=== PATIENT | male | born 1965 | race Hispanic/Latino ===

== ENCOUNTER 2020-05-20 16:32 | Emergency (ER) | payer SELFPAY ==
[~2020-05-20] VITALS: Ht 162.6 cm; Wt 77.1 kg
[~2020-05-20 16:32] MED LIST: INDOMETHACIN50 MG PO
[2020-05-20] MEDS ORDERED: AMLODIPINE BESYLATE 5 MG TAB PO ONE (17:00)
--- OUTSIDE RECORDS SUMMARY | 2020-05-20 17:09 | XMS REPORT | Clinical Summary ---
Author Author [facility] Organization [facility] Address Unknown Phone Unavailable Care Team Providers Care Critical Systems Technician Name Role Phone PCP Unavailable Allergies No Known Allergies Medications End Date Status Medication Sig Dispensed Refills Start Date Active colchicine (COLCRYS) 0.6 Use up to 30 tablet 1 1 mg tabletIndications: three times a 7 Idiopathic chronic gout day for acute of left knee without attack of tophus gout. Active polyethylene glycol Add lukewarm 4000 mL 0 09/07 (GOLYTELY) [id number] drinking 8 -5.86 gram oral water to the solutionIndications: OB + fill amarilys (4 stool liters) and shake. Drink as directed by your doctor.. Active propranolol (INDERAL) 40 Take 1/2 90 tablet 1 0 mg tabletIndications: tablet by 8 Essential hypertension mouth 2 times daily. Active losartan (COZAAR) 50 mg Take 1 tablet 90 tablet 1 tabletIndications: by mouth 8 Essential hypertension daily. Active allopurinol (ZYLOPRIM) Take 1 tablet 180 tablet 2 0 100 mg tabletIndications: by mouth 2 8 Idiopathic chronic gout times daily. 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 Active Problems Problem Noted Date Hx of colonoscopy with polypectomy- needs rpt in 1 yr 10/28/2017 Internal hemorrhoids 10/28/2017 Diverticulosis of intestine without bleeding 018 Tubular adenoma 10/28/2017 Chronic pain of left knee 10/11/2017 Essential hypertension 09/22/2017 Chewing tobacco use 09/07/2017 History of substance abuse 09/07/2017 Alcohol abuse 09/07/2017 Gout 09/07/2017 Chronic pain of left lower extremity 06/23/2017 Immunizations Name Administration Dates Next Due Influenza Vaccine, 09/07/2017 (Deferred: Unava ilable-Patient to Seasonal, Injectable return for vaccine later) Tdap (Tetanus Toxoid, 09/07/2017 Reduced Diphtheria Toxoid And Acellular Pertussis, Absorbed) Family History Medical History Relation Name Comments Other Father Heart Mother Relation Name Status Comments Father suicide Mother Social History Date Tobacco Use Types Packs/Day Years Used Never Smoker Smokeless Tobacco: Chew Current User Tobacco Cessation: Counseling Given: Yes Drinks/Week oz/Week Comments Alcohol Use No Food Insecurity Answer Date Recorded Within the past 12 months, you worried that your Never albina e 06/28/2017 food would run out before you got money to buy more. Within the past 12 months, the food you bought Never true 06/28/2017 just didn't last and you didn't have mo heriberto to get more. Sex Assigned at Date Recorded Not on file Industry Job Start Date Occupation Not on file Not on file Not on file Travel End Travel History Travel Start No recent travel history available. Last Filed Vital Signs Not on file Plan of Treatment Health Maintenance Due Date Last Done Comments Colorectal Cancer Scrn 10/27/2018 10/27/2017, Annual (FIT/FOBT) Age 50 07/01/2017 to 75 IMM Influenza Seasonal 04/03/2020 Oct to September (>/= 19 yrs) Results Not on fileafter 05/20/2019
--- OUTSIDE RECORDS SUMMARY | 2020-05-20 17:09 | XMS REPORT | Continuity of Care Document ---
Author Author Rodolfo Pruett HAFSA [place] Address Unknown Phone Unavailable Care Team Providers Care [employer] Name Role Phone [employer] Unavailable Un available Problems Problem Status Onset Date Classification Date Reported Comments Source Chest pain, unspecified 06/04/2019 06/07/2019 [facility] Tachycardia, unspecified 06/04/2019 06/07/2019 [facility] Nausea with vomiting, unspecified 06/04/2019 06/07/2019 [facility] CP/SOB Active 06/04/2019 [facility] Contusion of scalp, initial encounter 09/19/2017 12/19/2017 [facility] Other injury of unspecified body region, initial encounter 09/11/2017 12/19/2017 [facility] Pain in right shoulder 09/11/2017 12/19/2017 [facility] Unspecified fall, initial encounter 09/11/2017 12/19/2017 [facility] OTHER Active 09/11/2017 [facility] Acute chest pain (finding) Res olved 03/26/2017 Problem 06/07/2019 [facility] ACUTE CHEST PAIN Active 03/26/2017 [facility] CHEST PAIN Active 03/26/2017 [facility] Gout (disorder) Resolved Problem 06/07/2019 [facility] Fall from, out of or through roof, initial encounter 12/19/2017 [facility] Other chest pain 12/19/2017 [facility] Essential (primary) hypertension 12/19/2017 [facility] Personal history of nicotine dependence 12/19/2017 [facility] CHEST PAIN, UNSPECIFIED Active [facility] Medications Medication Details Route Status Patient Instructions Ordering Provider Order Date Source NS (Bolus) IV 1,000 mL, 1,000 ml/hr, Infuse Over: 1 hr, Route: IV, 1,000, Drug form: INJ, ONCE, Priority: STAT, Dosing Weight 75 kg, Start date: 06/04/19 20:58:00 [employer]ODUCTION WORKER, 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, 0 Inactive 06/05/2019 [facility] Saline Flush 0.9% Notes: Same as: BD Posiflush Sterile No Longer Active 06/05/2019 [facility] tramadol hydrochloride 50 MG Oral Tablet 50 mg = 1 tab, PO, Q6H, PRN Pain, # 30 tab, 0 Refill(s) Active 09/12/2017 [facility] tramadol hydrochloride 50 MG Oral Tablet 50 mg, Route: PO, Drug form: TAB, ONCE, Dosing Weight 70.455, kg, Priority: STAT, Start date: 09/11/17 22:47:00 CDT, Stop date: 09/11/17 22:47:00 CDT Inactive 09/12/2017 [facility] Ondansetron Notes: (Same as: Deborah lundberg) MEDICATION WASTE Product Size: 4 mg Product Wasted: ___ mg Inactive 09/12/2017 [facility] Morphine Notes: (Same as:MORPh ine Sulfate) Inactive 09/12/2017 [facility] Saline Flush 0.9% Notes: (Same as: BD Posiflush) Inactive 03/27/2017 [facility] aspirin 81 mg tablet, enteric coated Notes: Do not crush or chew. (Same As: Ecotrin) Inactive 03/27/2017 [facility] carvedilol Notes: Give with fo od. (Same As: Coreg) Inactive 03/27/2017 [facility] Saline Flush 0.9% Notes: (Same as: BD Posiflush) Inactive 03/27/2017 [facility] Morphine 2 mg, 1 mL, Route: IV P, Drug form: SOLN, Q15Min, Dosing Weight 81.818, kg, PRN Chest Pain, Start date: 03/27/17 1:07:00 CDT, Duration: 2 doses or times, Stop date: Limited # of times Inactive 03/27/2017 [facility] Ondansetron Notes: (Same as: Deborah lundberg) Inactive 03/27/2017 [facility] Nitroglycerin Notes: (Same as: Nitroquick, Nitrostat) "Do Not Crush" Sublingual tablet Inactive 03/27/2017 [facility] Aspirin Notes: Take with food. Inactive 03/27/2017 [facility] Saline Flush 0.9% Notes: prese rvative free. No Longer Active 03/27/2017 [facility] Allergies, Adverse Reactions, Alerts Substance Category Reaction Severity Reaction type Status Date Reported Comments Source No Known Medication Allergies Assertion Drug aller gy [facility] Immunizations No Data Provided for This Section Results Order Name Results Value Reference Range Date Interpretation Comments Source CARDIAC ENZYMES Troponin-I <0.02 0.00 - 0.40 06/05/2019 [facility] CARDIAC ENZYMES Total CK 90 12 - 191 06/05/2019 [facility] CARDIAC ENZYMES Troponin-I <0.02 0.00 - 0.40 06/05/2019 [facility] CHEM [facility] Glucose Lvl 86 70 - 99 06/05/2019 [facility] CHEM PANEL BUN 7 7 - 22 06/05/2019 [facility] CHEM PANEL Creatinine Lvl 1.10 0.50 - 1.40 06/05/2019 [facility] CHEM PANEL Sodium Lvl 143 135 - 145 06/05/2019 [facility] CHEM PANEL Potassium Lvl 3.5 3.5 - 5.1 06/05/2019 [facility] CHEM PANEL Chloride Lvl 109 95 - 109 06/05/2019 [facility] CHEM PANEL CO2 26 24 - 32 06/05/2019 [facility] CHEM PANEL Calcium Lvl 8.5 8.5 - 10.5 06/05/2019 [facility] CHEM PANEL Total Protein 7.4 6.4 - 8.4 06/05/2019 [facility] CHEM PANEL Albumin Lvl 3.5 3.5 - 5.0 06/05/2019 [facility] CHEM PANEL ALT 47 0 - 65 06/05/2019 [facility] CHEM PANEL AST 40 0 - 37 06/05/2019 [facility] CHEM PANEL Alk Phos 92 39 - 136 06/05/2019 [facility] CHEM PANEL Bili Total 0.5 0.2 - 1.3 06/05/2019 [facility] CHEM PANEL eGFR 76 06/05/2019 Result Comment: The eGFR is calculated using the CKD-EPI formula. In most young, healthy individuals the eGFR will be >90 mL/min/1.73m2. The eGFR declines with age. An eGFR of 60-89 may be normal in some populations, particularly the elderly, for whom the CKD-EPI formula has not been extensively validated. Use of the eGFR is not recommended in the following populations:

Individuals with unstable creatinine concentrations, including patients and those with serious co-morbid conditions.

Patients with extremes in muscle mass or diet.

The data above are obtained from the National Kidney Disease Education Program (NKDEP) which additionally recommends that when the eGFR is used in patients with extremes of body mass index for purposes of drug dosing, the eGFR should be multiplied by the estimated BMI. [facility] CHEM PANEL AGAP 11.5 10.0 - 20.0 06/05/2019 [facility] CHEM PANEL B/C Ratio 6 6 - 25 06/05/2019 [facility] CHEM PANEL Globulin 3.9 2.7 - 4.2 06/05/2019 [facility] CHEM PANEL A/G Ratio 0.9 0.7 - 1.6 06/05/2019 [facility] CHEM PANEL Lipase Lvl 160 73 - 393 06/05/2019 [facility] U Amph Scr Nega tive *NA* (06/04/19 9:36 PM) Negative 06/05/2019 [facility] U Rizwana Scr Nega tive *NA* (06/04/19 9:36 PM) Negative 06/05/2019 [facility] U Benzodiaz Scr Nega tive *NA* (06/04/19 9:36 PM) Negative 06/05/2019 [facility] U Cocaine Scr Nega tive *NA* (06/04/19 9:36 PM) Negative 06/05/2019 [facility] U Cannab Scr Nega tive *NA* (06/04/19 9:36 PM) Negative 06/05/2019 [facility] U Opiate Scr Nega tive *NA* (06/04/19 9:36 PM) Negative 06/05/2019 [facility] DRUG SCREEN U Phencyclidine Scr Nega tive *NA* (06/04/19 9:36 PM) Negative 06/05/2019 [facility] DRUG SCREEN UDS Note See Note (06/04/19 9:36 PM) 06/05/2019 [facility] HEMATOLOGY WBC 5.3 3.7 - 10.4 06/05/2019 [facility] HEMATOLOGY RBC 4.46 4.70 - 6.10 06/05/2019 [facility] HEMATOLOGY Hgb 14.0 14.0 - 18.0 06/05/2019 [facility] HEMATOLOGY Hct 41.6 42.0 - 54.0 06/05/2019 [facility] HEMATOLOGY MCV 93.2 80.0 - 94.0 06/05/2019 [facility] HEMATOLOGY MCH 31.4 27.0 - 31.0 06/05/2019 [facility] HEMATOLOGY MCHC 33.7 32.0 - 36.0 06/05/2019 [facility] HEMATOLOGY RDW 14.4 11.5 - 14.5 06/05/2019 [facility] Platelet 140 133 - 450 06/05/2019 [facility] MPV 7.1 7.4 - 10.4 06/05/2019 [facility] D-Dimer 0.31 06/05/2019 [facility] Segs 58.0 45.0 - 75.0 06/05/2019 [facility] Lymphocytes 31.9 20.0 - 40.0 06/05/2019 [facility] Monocytes 7.6 2.0 - 12.0 06/05/2019 [facility] Eosinophils 1.1 0.0 - 4.0 06/05/2019 [facility] Basophils 1.4 0.0 - 1.0 06/05/2019 [facility] Neutrophils # 3.1 1.5 - 8.1 06/05/2019 [facility] Lymphocytes # 1.7 1.0 - 5.5 06/05/2019 [facility] Monocytes # 0.4 0.0 - 0.8 06/05/2019 [facility] Eosinophils # 0.1 0.0 - 0.5 06/05/2019 [facility] Basophils # 0.1 0.0 - 0.2 06/05/2019 [facility] CHEM PANEL A/G Ratio 0.9 0.7 - 1.6 09/12/2017 [facility] CHEM PANEL B/C Ratio 13 6 - 25 09/12/2017 [facility] CHEM PANEL AGAP 13.2 10.0 - 20.0 09/12/2017 [facility] CHEM PANEL Globulin 4.1 2.7 - 4.2 09/12/2017 [facility] CHEM PANEL eGFR 72 09/12/2017 Result Comment: The eGFR is calculated using the CKD-EPI formula. In most young, healthy individuals the eGFR will be >90 mL/min/1.73m2. The eGFR declines with age. An eGFR of 60-89 may be normal in some populations, particularly the elderly, for whom the CKD-EPI formula has not been extensively validated. Use of the eGFR is not recommended in the following populations:

Individuals with unstable creatinine concentrations, including patients and those with serious co-morbid conditions.

Patients with extremes in muscle mass or diet.

The data above are obtained from the National Kidney Disease Education Program (NKDEP) which additionally recommends that when the eGFR is used in patients with extremes of body mass index for purposes of drug dosing, the eGFR should be multiplied by the estimated BMI. [facility] CHEM PANEL Glucose Lvl 83 70 - 99 09/12/2017 [facility] CHEM PANEL AST 23 0 - 37 09/12/2017 [facility] CHEM PANEL Alk Phos 114 39 - 136 09/12/2017 [facility] CHEM PANEL Bili Total 0.3 0.2 - 1.3 09/12/2017 [facility] CHEM PANEL Albumin Lvl 3.8 3.5 - 5.0 09/12/2017 [facility] CHEM PANEL ALT 33 0 - 65 09/12/2017 [facility] CHEM PANEL CO2 25 24 - 32 09/12/2017 [facility] CHEM PANEL Total Protein 7.9 6.4 - 8.4 09/12/2017 [facility] CHEM PANEL Calcium Lvl 8.7 8.5 - 10.5 09/12/2017 [facility] CHEM PANEL Sodium Lvl 135 135 - 145 09/12/2017 [facility] CHEM PANEL Potassium Lvl 4.2 3.5 - 5.1 09/12/2017 [facility] CHEM PANEL Chloride Lvl 101 95 - 109 09/12/2017 [facility] CHEM PANEL BUN 15 7 - 22 09/12/2017 [facility] CHEM PANEL Creatinine Lvl 1.16 0.50 - 1.40 09/12/2017 [facility] HEMATOLOGY INR 0.94 0.85 - 1.17 09/12/2017 [facility] HEMATOLOGY PTT 26.6 22.9 - 35.8 09/12/2017 [facility] HEMATOLOGY PT 12.6 12.0 - 14.7 09/12/2017 [facility] HEMATOLOGY MPV 8.4 7.4 - 10.4 09/12/2017 [facility] HEMATOLOGY Platelet 212 133 - 450 09/12/2017 [facility] HEMATOLOGY Hct 42.4 42.0 - 54.0 09/12/2017 [facility] RBC 4.95 4.70 - 6.10 09/12/2017 [facility] HEMATOLOGY MCV 85.6 80.0 - 94.0 09/12/2017 [facility] Hgb 14.1 14.0 - 18.0 09/12/2017 [facility] MCHC 33.3 32.0 - 36.0 09/12/2017 [facility] MCH 28.5 27.0 - 31.0 09/12/2017 [facility] RDW 15.6 11.5 - 14.5 09/12/2017 [facility] HEMATOLOGY WBC 8.3 3.7 - 10.4 09/12/2017 [facility] HEMATOLOGY Basophils # 0.2 0.0 - 0.2 09/12/2017 [facility] HEMATOLOGY Eosinophils # 0.3 0.0 - 0.5 09/12/2017 [facility] HEMATOLOGY Monocytes # 0.7 0.0 - 0.8 09/12/2017 [facility] HEMATOLOGY Basophils 2.3 0.0 - 1.0 09/12/2017 [facility] HEMATOLOGY Eosinophils 3.4 0.0 - 4.0 09/12/2017 [facility] Segs-Bands # 5.2 1.5 - 8.1 09/12/2017 [facility] Lymphocytes # 1.8 1.0 - 5.5 09/12/2017 [facility] Segs 63.2 45.0 - 75.0 09/12/2017 [facility] Lymphocytes 22.3 20.0 - 40.0 09/12/2017 [facility] Monocytes 8.8 2.0 - 12.0 09/12/2017 [facility] CHEM PANEL eGFR 57 09/12/2017 Result Comment: The eGFR is calculated using the CKD-EPI formula. In most young, healthy individuals the eGFR will be >90 mL/min/1.73m2. The eGFR declines with age. An eGFR of 60-89 may be normal in some populations, particularly the elderly, for whom the CKD-EPI formula has not been extensively validated. Use of the eGFR is not recommended in the following populations:

Individuals with unstable creatinine concentrations, including patients and those with serious co-morbid conditions.

Patients with extremes in muscle mass or diet.

The data above are obtained from the National Kidney Disease Education Program (NKDEP) which additionally recommends that when the eGFR is used in patients with extremes of body mass index for purposes of drug dosing, the eGFR should be multiplied by the estimated BMI. [facility] CHEM PANEL POC Creatinine 1.4 0.5 - 1.4 09/12/2017 [facility] CARDIAC ENZYMES CK MB 1.0 0.5 - 3.6 03/27/2017 [facility] CARDIAC ENZYMES CK MB Index 1.0 0.0 - 2.5 03/27/2017 [facility] CARDIAC ENZYMES Total CK 104 12 - 191 03/27/2017 [facility] CARDIAC ENZYMES Troponin-I <0.02 0.00 - 0.40 03/27/2017 [facility] CARDIAC ENZYMES CK MB 1.0 0.5 - 3.6 03/27/2017 [facility] CARDIAC ENZYMES CK MB Index 0.9 0.0 - 2.5 03/27/2017 [facility] CARDIAC ENZYMES Troponin-I <0.02 0.00 - 0.40 03/27/2017 [facility] CARDIAC ENZYMES Total CK 115 12 - 191 03/27/2017 [facility] CHEM PANEL Ammonia 47.0 <=45.0 uMol/L 03/27/2017 [facility] CARDIAC ENZYMES BNP 26 <=100 pg/mL 03/27/2017 [facility] CARDIAC ENZYMES Troponin-I <0.02 0.00 - 0.40 03/27/2017 [facility] CARDIAC ENZYMES CK MB 1.3 0.5 - 3.6 03/27/2017 [facility] CARDIAC ENZYMES Total CK 153 12 - 191 03/27/2017 [facility] CARDIAC ENZYMES CK MB Index 0.8 0.0 - 2.5 03/27/2017 [facility] CHEM PANEL eGFR 94 03/27/2017 Result Comment: The eGFR is calculated using the CKD-EPI formula. In most young, healthy individuals the eGFR will be >90 mL/min/1.73m2. The eGFR declines with age. An eGFR of 60-89 may be normal in some populations, particularly the elderly, for whom the CKD-EPI formula has not been extensively validated. Use of the eGFR is not recommended in the following populations:

Individuals with unstable creatinine concentrations, including patients and those with serious co-morbid conditions.

Patients with extremes in muscle mass or diet.

The data above are obtained from the National Kidney Disease Education Program (NKDEP) which additionally recommends that when the eGFR is used in patients with extremes of body mass index for purposes of drug dosing, the eGFR should be multiplied by the estimated BMI. [facility] CHEM PANEL Potassium Lvl 3.8 3.5 - 5.1 03/27/2017 [facility] CHEM PANEL Chloride Lvl 108 95 - 109 03/27/2017 [facility] CHEM PANEL Sodium Lvl 141 135 - 145 03/27/2017 [facility] CHEM PANEL BUN 8 7 - 22 03/27/2017 [facility] CHEM PANEL Creatinine Lvl 0.93 0.50 - 1.40 03/27/2017 [facility] CHEM PANEL Glucose Lvl 98 70 - 99 03/27/2017 [facility] CHEM PANEL ALT 27 0 - 65 03/27/2017 [facility] CHEM PANEL Albumin Lvl 3.4 3.5 - 5.0 03/27/2017 [facility] CHEM PANEL A/G Ratio 0.8 0.7 - 1.6 03/27/2017 [facility] CHEM PANEL Globulin 4.1 2.7 - 4.2 03/27/2017 [facility] CHEM PANEL AGAP 9.8 10.0 - 20.0 03/27/2017 [facility] CHEM PANEL B/C Ratio 9 6 - 25 03/27/2017 [facility] CHEM PANEL Bili Total 0.4 0.2 - 1.3 03/27/2017 [facility] CHEM PANEL AST 29 0 - 37 03/27/2017 [facility] CHEM PANEL Alk Phos 93 39 - 136 03/27/2017 [facility] CHEM PANEL Total Protein 7.5 6.4 - 8.4 03/27/2017 [facility] CHEM PANEL Calcium Lvl 8.0 8.5 - 10.5 03/27/2017 [facility] CHEM PANEL CO2 27 24 - 32 03/27/2017 [facility] HEMATOLOGY MCV 85.1 80.0 - 94.0 03/27/2017 [facility] HEMATOLOGY Hgb 13.4 14.0 - 18.0 03/27/2017 [facility] HEMATOLOGY Hct 39.4 42.0 - 54.0 03/27/2017 [facility] HEMATOLOGY WBC 5.6 3.7 - 10.4 03/27/2017 [facility] HEMATOLOGY RBC 4.62 4.70 - 6.10 03/27/2017 [facility] HEMATOLOGY Platelet 179 133 - 450 03/27/2017 [facility] HEMATOLOGY MPV 7.7 7.4 - 10.4 03/27/2017 [facility] HEMATOLOGY MCH 29.0 27.0 - 31.0 03/27/2017 [facility] HEMATOLOGY MCHC 34.0 32.0 - 36.0 03/27/2017 [facility] HEMATOLOGY RDW 16.7 11.5 - 14.5 03/27/2017 [facility] HEMATOLOGY Basophils # 0.1 0.0 - 0.2 03/27/2017 [facility] HEMATOLOGY Monocytes # 0.5 0.0 - 0.8 03/27/2017 [facility] HEMATOLOGY Eosinophils # 0.1 0.0 - 0.5 03/27/2017 [facility] HEMATOLOGY Eosinophils 2.6 0.0 - 4.0 03/27/2017 [facility] HEMATOLOGY Basophils 1.7 0.0 - 1.0 03/27/2017 [facility] HEMATOLOGY Segs-Bands # 3.1 1.5 - 8.1 03/27/2017 [facility] HEMATOLOGY Lymphocytes # 1.7 1.0 - 5.5 03/27/2017 [facility] Segs 55.9 45.0 - 75.0 03/27/2017 [facility] Lymphocytes 31.3 20.0 - 40.0 03/27/2017 [facility] HEMATOLOGY Monocytes 8.5 2.0 - 12.0 03/27/2017 [facility] Pathology Reports No Data Provided for This Section Diagnostic Reports Report Value Date Source Chest 2 views DX PROCEDURE INF ORMATION: Exam: XR Chest, 2 Views Exam date and time: 06/04/2019 10:05 PM Age: 54 years old Clinical history: Chest pain; Additional info: /chest pain TECHNIQUE: Imaging protocol: XR of the chest Views: 2 views. PA and Lateral COMPARISON: CHEST 1VIEW DX 09/11/2017 8:48 PM FINDINGS: Lungs: There are normal lung volumes without consolidation or interstitial oppacities. Pleural space: Unremarkable. No pleural effusion. No pneumothorax. Heart/Mediastinum: The heart size is normal. The pulmonary vasculature is normal. The mediastinal contour is normal. The trachea is midline. Bones/joints: No acute abnormality seen. IMPRESSION: No acute cardiopulmonary findings Shun Pat MD On 06/04/2019 22:08:56; [id number] 06/04/2019 [facility] Shoulder series DX EXAM: XR RI GHT SHOULDER, 3 VIEWS DATE: 09/11/2017 10:29 PM CDT INDICATION: Right shoulder pain. COMPARISON: None Available. TECHNIQUE: AP views in internal and external rotation as well as a scapular Y view of the right shoulder were obtained. FINDINGS: No fracture or malalignment is present. The soft tissues are within normal limits. There are no radiopaque foreign bodies. IMPRESSION: No acute fracture or dislocation. SL: [id number] 09/11/2017 [facility] Spine cervical wo contrast CT Clinical Indication: Pain Post Trauma - neck pain s/p fall from roof; Comparison: None Technique: Multi-detector CT imaging of the cervical spine is performed. Coronal and sagittal reconstructions were obtained. CT Radiation Dose DLP 875.48 mGy-cm FINDINGS: ALIGNMENT AND GENERAL ASSESSMENT: There is normal alignment of the cervical spine. There are no fractures or subluxations. The craniocervical junction is normal. The atlanto-dental alignment appears unremarkable. The posterior elements and spinous processes are unremarkable. The facet joint, spinolaminar and spinous process alignment are normal. DISK SPACES AND SOFT TISSUES: The prevertebral soft tissues are normal. C2-C3 to C7-T1 disc space levels show no definite disc protrusions on CT. There is no central or foraminal stenosis. MRI is the gold standard to assess for disk disease. VISUALIZED LUNG APICES: Unremarkable. CT myelogram or MRI of the cervical spine may be performed, if there is further concern. IMPRESSION: No fractures or subluxations of the cervical spine. SL: ANA 09/11/2017 [facility] Brain wo contrast CT Clinical Indication: Pain Post Trauma - BAILEY s/p fall from roof. Comparison: None. TECHNIQUE: CT images were obtained from the foramen magnum to the vertex without the use of intravenous contrast on a multidetector CT. CT imaging was performed with exposure control parameters to reduce radiation dose. Coronal and sagittal reconstructions were obtained. CT radiation dose DLP: 1776.74 mGy-cm FINDINGS: BRAIN PARENCHYMA: The brain parenchyma is normal with normal camilo and white interfaces. The periventricular white matter appears unremarkable. No focal mass lesions on this noncontrast head CT. No mass effect, midline shift or edema. There are no intra-axial or extra-axial fluid collections, intraventricular or intraparenchymal hemorrhage. No low attenuation demarcating areas on this non- contrast CT to suggest subacute stroke. VENTRICLES: The lateral ventricles, third and fourth ventricles appear unremarkable. The basilar cisterns are normal. ORBITS, MASTOIDS AND PARANASAL SINUSES: The visualized orbits are unremarkable. The visualized paranasal sinuses are unremarkable. The mastoid air cells are clear. SKULL: There are no osseous abnormalities. If there is further concern for intracranial pathology or acute stroke, MRI of the brain may be performed for complete assessment. IMPRESSION: No acute intracranial hemorrhage or mass effect. No calvarial fracture. SL: [id number] 09/11/2017 [facility] Chest/Abdomen/Pelvis w IV contrast CT Patient Name: REFUGIO LEE : 1965; Age: 52 years y/o Male MR: [id number] Study: Chest/Abdomen/Pelvis w IV contrast CT 09/11/2017 8:44 PM CDT Ordering Physician: Yamila Uriostegui MD Clinical Indication: Pain Post Trauma - fall from roof c/o chest pain Comparison: None TECHNIQUE: Sequential trans-axial images of the chest abdomen and pelvis were obtained with a multi-detector helical CT after administration of iodinated contrast. Coronal, sagittal and 3d post processing MIP reconstructions were obtained.. 100 mL of omnipaque contrast material was used for the exam. CT Radiation Dose DLP 2037.89 mGy-cm FINDINGS: CT CHEST: LUNG PARENCHYMA AND PLEURA: The lungs are clear. There are no pleural effusions. There is no pneumothorax. AIRWAY: The central airway demonstrates no acute pathology. MEDIASTINUM: No significant mediastinal lymphadenopathy. HEART: There is no evidence of RV strain. The cardiac chambers are otherwise unremarkable. There is no pericardial effusion. VASCULAR STRUCTURES: The thoracic aorta is is free of aneurysm . The superior vena cava is unremarkable. OSSEOUS STRUCTURES: There are no definite significant osseous abnormalities seen. CT ABDOMEN WITH CONTRAST: ABDOMINAL SOLID ORGANS: The liver, spleen, pancreas, adrenals and kidneys demonstrate no acute pathology. Gallstones noted, no refugio acute cholecystitis. STOMACH AND BOWEL: The stomach is demonstrates no acute pathology. There is no evidence of bowel obstruction or free air. Small hiatal hernia noted. PERITONEUM AND RETROPERITONEUM: There is no lymphadenopathy appreciated. VASCULAR STRUCTURES: The abdominal aorta demonstrates no acute pathology. Atherosclerotic calcifications noted. CT PELVIS WITH CONTRAST: BOWEL:There is no evidence of bowel obstruction appreciated. Extensive diverticulosis noted, no refugio diverticulitis. PERITONEUM AND EXTRAPERITONEAL REGIONS: There is no pelvic sidewall lymphadenopathy appreciated.. The inguinal regions demonstrate no acute pathology. BLADDER: The bladder demonstrate no acute pathology. OSSEOUS STRUCTURES: The bilateral femoral heads are heterogeneous, ?early AVN. MRI follow up recommended. 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 MRI follow up recommended. No acute traumatic pathology appreciated. SL: BRITNEY 09/11/2017 [facility] Pelvis AP DX EXAM: XR PELVIS, 1 VIEW DATE: 09/11/2017 8:47 PM CDT INDICATION: Pelvic pain. Trauma COMPARISON: None. TECHNIQUE: AP radiograph of the pelvis. FINDINGS: No fracture or dislocation of the pelvis is identified. The pelvic and obturator rings are intact. The pubic rami are intact. The symphysis pubis and sacroiliac joints are unremarkable. The visualized sacral foramina are unremarkable. The hip joint spaces, proximal femoral regions and acetabular regions are unremarkable. IMPRESSION: No fracture or malalignment of the pelvis. SL: [id number] 09/11/2017 [facility] Chest 1view DX Clinical Indica tion: Pain Post Trauma - c/o chest pain s/p fall from roof; Comparison: March 26, 2017 FINDINGS: AP chest radiographs shows normal lung volumes without interstitial or airspace opacities, pleural effusions or pneumothorax. The heart size and pulmonary vasculature are normal. The trachea is midline. There are no clinically significant osseous abnormalities noted. IMPRESSION: No chest radiographic evidence of acute cardiopulmonary disease. SL: [id number] 09/11/2017 [facility] Chest 1view DX EXAM: Chest 1vi ew DX DATE: 03/26/2017 7:03 PM CDT INDICATION: Chest pain - chest pain COMPARISON: None. IMPRESSION: Grossly normal cardiac silhouette and mediastinum. No focal consolidation, significant pleural effusion or pneumothorax. SL: [id number] 03/26/2017 [facility] Consultation Notes No Data Provided for This Section Discharge Summaries No Data Provided for This Section History and Physicals No Data Provided for This Section Vital Signs Vital Sign Value Date Comments Source Systolic (mm Hg) 127 06/05/2019 [facility] Diastolic (mm Hg) 66 06/05/2019 [facility] Heart Rate 75 06/05/2019 [facility] Respitory Rate 18 06/05/2019 [facility] Temperature Oral (F) 97.9 F 06/05/2019 [facility] BMI Calculated 28.38 06/05/2019 [facility] Systolic (mm Hg) 153 06/05/2019 [facility] Diastolic (mm Hg) 89 06/05/2019 [facility] Heart Rate 104 06/05/2019 [facility] Respitory Rate 18 06/05/2019 [facility] Temperature Oral (F) 98.1 F 06/05/2019 [facility] Height 162.56 cm 06/05/2019 [facility] BMI Calculated 28.38 06/05/2019 [facility] Weight 75 1 08/06/2018 [facility] Respitory Rate 30 09/12/2017 [facility] Systolic (mm Hg) 138 09/12/2017 [facility] Diastolic (mm Hg) 79 09/12/2017 [facility] Systolic (mm Hg) 134 09/12/2017 [facility] Diastolic (mm Hg) 97 09/12/2017 [facility] Respitory Rate 12 09/12/2017 [facility] Weight 70.455 09/12/2017 [facility] BMI Calculated 26.66 09/12/2017 [facility] Height 162.56 cm 09/12/2017 [facility] Temperature Oral (F) 98 F 09/12/2017 [facility] Heart Rate 78 09/12/2017 [facility] Respitory Rate 20 09/12/2017 [facility] Systolic (mm Hg) 148 09/12/2017 [facility] Diastolic (mm Hg) 96 09/12/2017 [facility] Systolic (mm Hg) 168 03/27/2017 [facility] Diastolic (mm Hg) 92 03/27/2017 [facility] Heart Rate 68 03/27/2017 [facility] Respitory Rate 20 03/27/2017 [facility] Temperature Oral (F) 98.2 F 03/27/2017 [facility] Heart Rate 76 03/27/2017 [facility] Temperature Oral (F) 97.8 F 03/27/2017 [facility] Respitory Rate 18 03/27/2017 [facility] Systolic (mm Hg) 105 03/27/2017 [facility] Diastolic (mm Hg) 54 03/27/2017 [facility] Respitory Rate 18 03/27/2017 [facility] BMI Calculated 46.9 03/27/2017 [facility] Weight 81.818 03/27/2017 [facility] Height 132.08 cm 03/27/2017 [facility] Temperature Oral (F) 98.2 F 03/27/2017 [facility] Systolic (mm Hg) 125 03/27/2017 [facility] Diastolic (mm Hg) 70 03/27/2017 [facility] Heart Rate 89 03/27/2017 [facility] Encounters Location Location Details Encounter Type Encounter Number Reason For Visit Attending Provider ADM Date DC Date Status Source [facility] Observation [id number] Tito Kwan 03/26/2017 03/27/2017 [facility] [id number] Yamila Moody 09/12/2017 09/12/2017 [facility] [id number] Fan Jimenez 06/05/2019 06/05/2019 [facility] Procedures No Data Provided for This Section Assessment and Plan Assessment and Plan Date Source Extracted from:Title: Clinical Document Author: Tito Kwan MD Date: 03/27/17 Cardiology Note Tito Kwan MD, PA THIS IS A COMBINED H&P AND DISCHARGE SUMMARY SUBJECTIVE: CHIEF COMPLAINT: Chest pain. HISTORY OF PRESENT ILLNESS: Patient is a 52-year-old male with history of gout, presents with 1-month history of chest pain described as tightness and stabbing. He did have some shortness of breath. Denies any nausea, vomiting or dizziness. No lower extremity edema. Patient denies any history of previous heart catheterization or 2D echo. REVIEW OF SYSTEMS: CONSTITUTIONAL: As per HPI. CARDIAC: As per HPI. PHYSICAL EXAMINATION: GENERAL: He was seen at the bedside. He is in no acute distress. HEENT: His pupils are equal and reactive to light and accommodation. Extraocular movements are intact. NECK: No JVD. No lymphadenopathy. RESPIRATORY: Lungs are clear to auscultation bilaterally. CARDIOVASCULAR: Heart is regular rate and rhythm. No murmurs, rubs or gallops. GENITOURINARY: Deferred. RECTAL: Deferred. SKIN: Warm and dry. MEDICATIONS: None. ALLERGIES: No known drug allergies. PAST MEDICAL HISTORY: Gout. PAST SURGICAL HISTORY: None. SOCIAL HISTORY: Previous smoker. Vitals and Temp: Vitals Tmp(F) Pulse BP RR SpO2 FIO2 03/27 08:30 ---- --- ----- - - 100 --- 03/27 07:22 98.2 68 168/92 2 0 100 --- 03/27 03:02 97.8 76 105/54 1 8 97 --- 03/27 02:30 ---- --- ----- 1 8 95 --- 03/27 01:55 ---- 65 ----- -- --- --- 24 Hr Tmax: 98.3F (36.83c) at 03/26 20:4 7 Vital Signs are the last 5 in the past 48 hours. Scheduled Meds (3): 03/27/17 aspirin (aspirin 81 mg tablet, enteric coated) 81 mg PO Daily 03/27/17 carvedilol 3.125 mg PO Q12H 03/27/17 sodium chloride (Saline Flush 0 .9%) 10 ml IVP Q12H Continuous Infusions: None Labs (Last four charted values) WBC 5.6 (MAR 26) Hgb L 13.4 (MAR 26) Hct L 39.4 (SEP ) Plt 179 (SEP ) Na 141 (SEP 23) K 3.8 (SEP 23) CO2 27 (SEP ) Cl 108 (SEP ) Cr 0.93 (SEP ) BUN 8 (SEP ) Glucose Random 98 (SEP ) Ca L 8.0 (SEP ) Troponin <0.02 (MAR 27) <0.02 (SEP 24) <0.02 (SEP ) CK MB 1.0 (MAR 27) 1.0 (MAR 27) 1.3 (SEP ) Total CK 104 (MAR 27) 115 (SEP ) 153 (SEP ) EXAM: Good BP control; NSR; afebrile Head: normocephalic and atraumatic Neck: no carotid bruit; no JVD CV: Regular; -S3; no significant murmurs Lungs: Clear; no wheezing; good air entry Abd: soft and no organomegaly; + bowel sounds Ext: no CCE; good pulses distally Neuro: nonfocal; oriented *3 Psych: appropriate ASSESSMENT: Atypical chest pain Negative cardiac enzymes Benign ECG Low risk for CAD PLAN: DC home No new meds Cardiac diet Activity as tolerated F/U with PCP- advised he needs outpt stress test 03/27/2017 [facility] Plan of Care No Data Provided for This Section Social History Social History Date Source Social History TypeResponse Alcohol Current, Type Beer. Frequency: 3-5 times per week. Last use: yesterday. Started age 22 Years. Stopped age 50 Years. Previous treatment: None. Alcohol use interferes with work or home: No. Drinks more than intended: No. Others hurt by drinking: No. Ready to change: No. Household alcohol concerns: No. Sexual Sexually active: Yes. Substance Abuse Use: None. Smoking Status Former smoker; Type: Chewing tobacco; Previous treatment: None; Ready to change: No; Concerns about tobacco use in household: No; Exposure to Tobacco Smoke None; Cigarette Smoking Last 365 Days No; Reg Smoking Cessation Counseling No; Other Tobacco Frequency chews tobacco for nine years; entered on: 06/04/19 03/27/2017 [facility] Family History No Data Provided for This Section Advance Directives No Data Provided for This Section Functional Status No Data Provided for This Section
--- OUTSIDE RECORDS SUMMARY | 2020-05-20 17:10 | XMS REPORT | Continuity of Care Document ---
Author Author [facility] t Organization [facility] Address [address] [place] [address] Phone Unavailable Care Team Providers Care Senior Litigation Paralegal Name Role Phone Myrtle Jimenez Attphys Shayla Uriostegui Attphys Shree Kwan Attphys Shree Kwan Admphys Payers Payer Name Policy Type Policy Number Effective Date Expiration Date S ource Problems Condition Name Condition Details Condition Category Status Onset Date Resolution Date Last Treatment Date Treating Clinician Comments Source CP/SOB CP/S OB Active 06/04/2019 [facility] Active 2019-06-04 00:00:00 2019-07-18 10:13:00 Rodolfo Pruett Hx of colonoscopy with polypectomy- needs rpt in 1 yr Hx of colonoscopy with polypectomy- needs rpt in 1 yr Disease Active 2017-10-28 00:00:00 [facility] Internal hemorrhoids Internal hemorrhoids Disease Active 00:00:00 [facility] Diverticulosis of intestine without bleeding Diverticu losis of intestine without bleeding Disease Active 2017-10-28 00:00:00 [facility] Tubular adenoma Tubular adenoma Disease Active 2017-10-28 00:00:00 [facility] Chronic pain of left knee Chronic pain of left knee Disease Ac tive 2017-10-11 00:00:00 [facility] Essential hypertension Essential hypertension Disease Active 2017-09-22 00:00:00 [facility] OTHER OTHE R Active 09/11/2017 [facility] Active 2017-09-11 00:00:00 2017-09-11 21:31:00 [facility] [place] Chewing tobacco use Chewing tobacco use Disease Active 2017-09-07 00:00 :00 [facility] History of substance abuse History of substance abuse Disease Active 2017-09-07 00:00:00 [facility] Alcohol abuse Alcohol abuse Disease Active 2017-09-07 00:00:00 [facility] Chronic pain of left lower extremity Chronic pain of left lo wer extremity Disease Active 2017-06-23 00:00:00 [facility] ACUTE CHEST PAIN ACUT E CHEST PAIN Active 03/26/2017 [facility] Active 2017-03-26 00:00:00 2017-03-26 23:30:00 [facility] CHEST PAIN CHES T PAIN Active 03/26/2017 [facility] Active 2017-03-26 00:00:00 2017-03-26 21:21:00 [facility]olfo [place] Fall from, out of or through roof, initial encounter Fall from, out of or through roof, initial encounter 12/19/2017 [facility] Problem 2017-12-19 13:20:10 [facility] Other chest pain Othe r chest pain 12/19/2017 [facility] Problem 2017-12-19 13:20:10 [facility] Essential (primary) hypertension Essential (primary) hypertension 12/19/2017 [facility] Problem 2017-12-19 13:20:10 [facility] Personal history of nicotine dependence Personal history of nicotine dependence 12/19/2017 [facility] Problem 2017-12-19 13:20:10 [facility] Gout (disorder) Gout (disorder) Resolved Problem 06/07/2019 [facility] Resolved 2019-06-07 22:06:26 [facility] [place] CHEST PAIN, UNSPECIFIED CHES T PAIN, UNSPECIFIED Active [facility] Active 2017-03-26 23:30:00 [facility] [place] Chest pain, unspecified Ches t pain, unspecified 06/04/2019 06/07/2019 [facility] Problem 2019-06-04 18:00:00 2018 22:06:26 2019-06-07 22:06:26 Rodolfo Pruett Tachycardia, unspecified Tach ycardia, unspecified 06/04/2019 06/07/2019 [facility] Problem 2019-06-04 18:00:00 2018 22:06:26 2019-06-07 22:06:26 Rodolfo Pruett Nausea with vomiting, unspecified Nausea with vomiting, unspecified 06/04/2019 06/07/2019 [facility] Problem 20 21-06-02 18:00:00 2019-06-07 22:06:26 2019-06-07 22:06:26 Rodolfo Pruett Contusion of scalp, initial encounter Contusion of scalp, initial encounter 09/19/2017 12/19/2017 [facility] Problem 2017-09-19 02:51:27 2017-12-19 13:20:10 2017-12-19 13:20:10 Rodolfo Pruett Other injury of unspecified body region, initial encou nter Other injury of unspecified body region, initial encounter 09/11/2017 12/19/2017 [facility] Problem 2017-09-11 06:00:00 2017-12-19 13:20:10 2017-12-19 13:20:10 Rodolfo Pruett Pain in right shoulder Pain in right shoulder 09/11/2017 12/19/2017 [facility] Problem 2017-09-11 06:00:00 2017 13:20:10 2017-12-19 13:20:10 Rodolfo Pruett Unspecified fall, initial encounter Unspecified fall, initial encounter 09/11/2017 12/19/2017 [facility] Problem 2017-09-11 06:00:00 2017-12-19 13:20:10 2017-12-19 13:20:10 M emoallan Pruett History of Past Illness Condition Name Condition Details Condition Category Status Onset Date Resolution Date Last Treatment Date Treating Clinician Comments Source Acute chest pain (finding) Acu te chest pain (finding) Resolved 03/26/2017 Problem 06/07/2019 [facility] Resolved 2017-03-26 00:00:00 2019-06-07 22:06:26 2019-06-07 22:06:26 M emiliano Pruett Allergies, Adverse Reactions, Alerts Allergy Name Allergy Type Status Severity Reaction(s) Onset Date Inacti ve Date Treating Clinician Comments Source No Known Allergies DA Active U 2018-09-22 00:00:00 [facility] No Known Allergies DA Active U 2017-10-18 00:00:00 [facility] No Known Medication Allergies No Known Medication Allergies Active [facility] Family History Family Member Diagnosis Comments Start Date Stop Date Source Natural father Other [facility] Natural mother Heart [facility] Social History Social Habit Start Date Stop Date Quantity Comments Source History of tobacco use Chews Tobacco [facility] Sex Assigned At [facility] Alcohol intake 2018-12-06 00:00:00 2018-12-06 00:00:00 Current non-drinker of alcohol (finding) [facility] History SDOH Food Worry 2017-06-28 00:00:00 2017-06-28 00:00:00 1 [facility] SDOK Food Scarcity 2017-06-28 00:00:00 2017-06-28 00:00:00 1 [facility] Social History 2017-03-27 05:35:50 2017-03-27 05:35:50 [facility] Smoking Status Start Date Stop Date Source Never smoker [facility] Medications Ordered Medication Name Filled Medication Name Start Date Stop Da te Current Medication? Ordering Clinician Indication Dosage Frequency Signature (SIG) Comments Components Source NS (Bolus) IV 2019-06-05 02:58:00 No 1,000 mL, 1,000 ml/hr, Infuse Over: 1 hr, Route: IV, 1,000, Drug form: INJ, ONCE, Priority: STAT, Dosing Weight 75 kg, Start date: 06/04/19 20:58:00 [employer], Stop date: 06/04/19 20:58:00 [employer], 0 [facility] Saline Flush 0.9% 2019-06-05 02:50:00 No Notes: Same as: BD Posiflush Sterile [facility] naproxen (NAPROSYN) 375 mg tablet 2017-10-11 00:00:00 Yes Chronic pain of left knee 375mg Take 1 tablet by mouth 2 times daily (with meal s). 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 [facility] losartan (COZAAR) 50 mg tablet 2017-09-22 00:00:00 Yes Essential hypertension 50mg QD Take 1 tablet by mouth daily. [facility] tramadol hydrochloride 50 MG Oral Tablet 2017-09-12 04:44:00 Yes 50 mg = 1 tab, PO, Q6H, PRN Pain, # 30 tab, 0 Refill(s) [facility]olfo [place] tramadol hydrochloride 50 MG Oral Tablet 2017-09-12 03:47:00 No 50 mg, Route: PO, Drug form: TAB, ONCE, Dosing Weight 70.455, kg, Priority: STAT, Start date: 09/11/17 22:47:00 CDT, Stop date: 09/11/17 22:47:00 CDT [facility] Ondansetron 2017-09-12 02:04:00 No Notes: (Same as: Herb) MEDICATION WASTE Product Size: 4 mg Product Wasted: ___ mg [facility] Morphine 2017-09-12 02:04:00 No Not es: (Same as:MORPhine Sulfate) [facility] polyethylene glycol (GOLYTELY) 236-22.74-6.74 -5.86 gram ora l solution 2017-09-07 00:00:00 Yes OB + stool Add lukewarm drinking water to the fill amarilys (4 liters) and shake. Drink as directed by your doctor.. [facility] propranolol (INDERAL) 40 mg tablet 2017-09-07 00:00:00 Yes Essential hypertension 20mg Q.5D Take 1/2 tablet by mouth 2 times daily. 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 [facility] Saline Flush 0.9% 2017-03-27 14:00:00 No Notes: (Same as: BD Posiflush) [facility] aspirin 81 mg tablet, enteric coated 2017-03-27 14:00:00 No Notes: Do not crush or chew. (Same As: Ecotrin) [facility] carvedilol 2017-03-27 14:00:00 No Notes: Give with food. (Same As: Coreg) [facility] Saline Flush 0.9% 2017-03-27 06:07:00 No Notes: (Same as: BD Posiflush) [facility] Morphine 2017-03-27 06:07:00 No 2 mg, 1 mL, Route: IVP, Drug form: SOLN, Q15Min, Dosing Weight 81.818, kg, PRN Chest Pain, Start date: 03/27/17 1:07:00 CDT, Duration: 2 doses or times, Stop date: Limited # of times Rodolfo Pruett Ondansetron 2017-03-27 06:07:00 No Notes: ( Same as: Zofran) [facility] Nitroglycerin 2017-03-27 06:07:00 No Notes: (Same as:Nitroquick, Nitrostat) "Do Not Crush" Sublingual tablet [facility] Aspirin 2017-03-27 01:49:00 No Notes: Take with food. [facility] Saline Flush 0.9% 2017-03-27 00:03:00 No Notes: preservative free. [facility] Immunizations Ordered Immunization Name Filled Immunization Name Date Status Comments Source Tdap (Tetanus Toxoid, Reduced Diphtheria Toxoid And Acellular Pertussis, Absorbed) 2017-09-07 00:00:00 [facility] Vital Signs Vital Name Observation Time Observation Value Comments Source Systolic (mm Hg) 2019-06-05 07:39:00 [facility] Diastolic (mm Hg) 2019-06-05 07:39:00 [facility] Heart Rate 2019-06-05 07:39:00 [facility] Respitory Rate 2019-06-05 07:39:00 [facility] [place] Temperature Oral (F) 2019-06-05 07:39:00 97.9 F [facility] BMI Calculated 2019-06-05 02:50:00 [facility] [place] Systolic (mm Hg) 2019-06-05 02:03:00 [facility] [place] Diastolic (mm Hg) 2019-06-05 02:03:00 [facility] Heart Rate 2019-06-05 02:03:00 [facility] Respitory Rate 2019-06-05 02:03:00 [facility] Temperature Oral (F) 2019-06-05 02:03:00 98.1 F [facility] Height 2019-06-05 02:03:00 162.56 cm [facility] BMI Calculated 2019-06-05 02:03:00 [facility] Weight 2019-06-05 02:03:00 [facility] [place] Respitory Rate 2017-09-12 05:14:00 [facility] [place] Systolic (mm Hg) 2017-09-12 05:14:00 [facility] [place] Diastolic (mm Hg) 2017-09-12 05:14:00 [facility] Systolic (mm Hg) 2017-09-12 01:55:00 [facility] Diastolic (mm Hg) 2017-09-12 01:55:00 [facility] Respitory Rate 2017-09-12 01:55:00 [facility] [place] Weight 2017-09-12 01:50:00 [facility] [place] BMI Calculated 2017-09-12 01:50:00 [facility] Height 2017-09-12 01:50:00 162.56 cm [facility] [place] Temperature Oral (F) 2017-09-12 01:50:00 98 F [facility] Heart Rate 2017-09-12 01:50:00 [facility] [place] Respitory Rate 2017-09-12 01:50:00 [facility] [place] Systolic (mm Hg) 2017-09-12 01:50:00 [facility] [place] Diastolic (mm Hg) 2017-09-12 01:50:00 [facility] Systolic (mm Hg) 2017-03-27 12:22:00 [facility] [place] Diastolic (mm Hg) 2017-03-27 12:22:00 [facility] Heart Rate 2017-03-27 12:22:00 [facility] Respitory Rate 2017-03-27 12:22:00 [facility] Temperature Oral (F) 2017-03-27 12:22:00 98.2 F [facility] [place] Heart Rate 2017-03-27 08:02:00 [facility] [place] Temperature Oral (F) 2017-03-27 08:02:00 97.8 F [facility] [place] Respitory Rate 2017-03-27 08:02:00 [facility] Systolic (mm Hg) 2017-03-27 08:02:00 [facility] Diastolic (mm Hg) 2017-03-27 08:02:00 [facility] Respitory Rate 2017-03-27 07:30:00 [facility] BMI Calculated 2017-03-27 05:26:00 [facility] [place] Weight 2017-03-27 05:26:00 [facility] [place] Height 2017-03-27 05:26:00 132.08 cm [facility] Temperature Oral (F) 2017-03-27 04:51:00 98.2 F [facility] Systolic (mm Hg) 2017-03-27 04:51:00 [facility] allan [place] Diastolic (mm Hg) 2017-03-27 04:51:00 [facility] Heart Rate 2017-03-27 00:05:00 [facility] [place] Procedures This patient has no known procedures. Plan of Care Planned Activity Planned Date Details Comments Source Future Scheduled Test 2020-04-03 00:00:00 IMM Influenza Seas onal Apr to September (>/= 19 yrs) [code = IMM Influenza Seasonal Apr to September (>/= 19 yrs)] [facility] Future Scheduled Test 2018-10-27 00:00:00 Screening for suman gnant neoplasm of colon (procedure) [code = 017297589] [facility] Encounters Start Date/Time End Date/Time Encounter Type Admission Type Att[facility] Care Department Encounter ID Source 2019-06-04 20:00:52 2019-06-05 03:01:00 Outpatient Fan Jimenez [facility] [id number] 2019-06-04 20:00:00 2019-06-04 20:00:00 Emergency E SE SE [facility] 2017-12-09 00:00:00 2017-12-09 00:00:00 Outpatient [facility] [id number] [facility] 2017-11-10 10:24:40 2017-11-10 10:24:40 Outpatient [facility] [id number] [facility] 2017-10-25 12:02:04 2017-10-25 12:02:04 Outpatient [facility] [id number] [facility] 2017-10-25 00:00:00 2017-10-25 00:00:00 Outpatient [facility] [id number] [facility] 2017-10-24 00:00:00 2017-10-24 00:00:00 Outpatient [facility] [id number] [facility] 2017-10-11 07:54:07 2017-10-11 07:54:07 Outpatient [facility] [id number] [facility] 2017-10-06 08:44:27 2017-10-06 08:44:27 Outpatient [facility] [id number] [facility] 2017-10-06 00:00:00 2017-10-06 00:00:00 Outpatient [facility] [id number] [facility] 2017-09-26 08:10:59 2017-09-26 08:10:59 Outpatient [facility] [id number] [facility] 2017-09-22 11:25:38 2017-09-22 11:25:38 Outpatient [facility] [id number] [facility] 2017-09-12 08:22:30 2017-09-12 08:22:30 Outpatient [facility] [id number] [facility] 2017-09-11 20:24:00 2017-09-12 00:15:00 Outpatient Phill colvinjuan Koyicaitlynrohith [facility] [id number] 2017-09-07 08:31:35 2017-09-07 08:31:35 Outpatient [facility] [id number] [facility] 2017-09-07 00:00:00 2017-09-07 00:00:00 Outpatient [facility] [id number] [facility] 2017-08-17 00:00:00 2017-08-17 00:00:00 Outpatient [facility] [id number] [facility] 2017-08-11 09:03:35 2017-08-11 09:03:35 Outpatient [facility] [id number] [facility] 2017-08-09 00:00:00 2017-08-09 00:00:00 Outpatient [facility] [id number] [facility] 2017-08-05 00:00:00 2017-08-05 00:00:00 Outpatient [facility] [id number] [facility] 2017-07-22 09:58:00 2017-07-22 09:58:00 Outpatient [facility] [id number] [facility] 2017-07-01 12:33:50 2017-07-01 12:33:50 Outpatient [facility] [id number] [facility] 2017-06-30 13:48:06 2017-06-30 13:48:06 Outpatient [facility] [id number] [facility] 2017-06-29 10:24:27 2017-06-29 10:24:27 Outpatient [facility] [id number] [facility] 2017-06-28 15:37:11 2017-06-28 15:37:11 Outpatient [facility] [id number] [facility] 2017-06-28 13:45:10 2017-06-28 13:45:10 Outpatient [facility] [id number] [facility] 2017-06-23 02:04:59 2017-06-23 02:04:59 Emergency [facility] [id number] [facility] 2017-06-23 00:07:35 2017-06-23 00:07:35 Emergency [facility] [id number] [facility] 2017-03-26 18:56:00 2017-03-27 11:08:00 Outpatient Caitlyn Kwan [facility] [id number] Results Test Description Test Time Test Comments Results Result Comments Source CARDIAC ENZYMES 2019-06-05 06:47:00 <0.02 [facility] CARDIAC ENZYMES 2019-06-05 03:36:00 90 [facility] CARDIAC ENZYMES 2019-06-05 03:36:00 <0.02 [facility] [place] CHEM PANEL 2019-06-05 03:36:00 86 [facility] CHEM PANEL 2019-06-05 03:36:00 7 [facility] [place] CHEM PANEL 2019-06-05 03:36:00 1.10 [facility] CHEM PANEL 2019-06-05 03:36:00 143 [facility] CHEM PANEL 2019-06-05 03:36:00 3.5 [facility] [place] CHEM PANEL 2019-06-05 03:36:00 109 [facility] [place] CHEM PANEL 2019-06-05 03:36:00 26 [facility] CHEM PANEL 2019-06-05 03:36:00 8.5 [facility] CHEM PANEL 2019-06-05 03:36:00 7.4 [facility] CHEM PANEL 2019-06-05 03:36:00 3.5 [facility] [place] CHEM PANEL 2019-06-05 03:36:00 47 [facility] CHEM PANEL 2019-06-05 03:36:00 40 [facility] [place] CHEM PANEL 2019-06-05 03:36:00 92 [facility] [place] CHEM PANEL 2019-06-05 03:36:00 0.5 [facility] CHEM PANEL 2019-06-05 03:36:00 76 [facility] CHEM PANEL 2019-06-05 03:36:00 11.5 [facility] CHEM PANEL 2019-06-05 03:36:00 Test Item B/C Ratio (test code = B/C Ratio) 6 1 6-25 [facility] [id number] 03:36:003.9[facility] 2019-06-05 03:36:00* Test Item Value Reference Range Interpretation Comments A/G Ratio (test code = A/G Ratio) 0.9 1 0.7-1.6 [facility] [id number] 03:36:46301Zopkmfna HermannDRUG SCREEN 2019-06-05 03:36:00Negative *NA*(06/04/19 9:36 PM)[facility] 2019-06-05 03:36:00Negative *NA*(06/04/19 9:36 PM)[facility] 2019-06-05 03:36:00Negative *NA*(06/04/19 9:36 PM)[facility] 2019-06-05 03:36:00Negative *NA*(06/04/19 9:36 PM)[facility] 2019-06-05 03:36:00Negative *NA*(06/04/19 9:36 PM)[facility] 2019-06-05 03:36:00Negative *NA*(06/04/19 9:36 PM)[facility] 2019-06-05 03:36:00Negative *NA*(06/04/19 9:36 PM)[facility] 2019-06-05 03:36:00See Note (06/04/19 9:36 PM)[facility]ann[facility]OLOGY 2019-06-05 03:36:005.3[facility] TguxamgKVCPMJNNRW5861-51-93 03:36:004.46[facility] ClidcjdCSIHNDDBML3635-43-91 03:36:0014.0[facility] WihruaqWWMTUDJVDY6538-05-08 03:36:0041.6[facility] RsojfnaELTDCLAVDL6866-46-27 03:36:0093.2[facility] [place] [id number] 03:36:00* Test Item Value Reference Range Interpretation Comments MCH (test code = MCH) 31.4 pg 27.0-31.0 [facility] [id number] 03:36:0033.7[facility]annHEMATOLOGY 2019-06-05 03:36:0014.4[facility] [id number] 03:36:92860Fcupztah JyctucaNIMNBZLJEN8526-96-90 03:36:007.1[facility] PuilhbsTJVAQAMKYR5909-05-21 03:36:000.31[facility] QuofaptNQMHUTZYJR7389-76-82 03:36:0058.0[facility] UKSYOPSJXW6526-94-46 03:36:0031.9[facility] NathssqFYLRKGXYVO9611-42-27 03:36:00 7.6[facility] VslaioqBUVMUUYPXB7990-31-72 03:36:001.1[facility]ann[facility]MATOLOGY 2019-06-05 03:36:001.4[facility] ZavmyauGAXHYZJMXV4738-03-17 03:36:003.1[facility] HtiiegmHPTPAMUYRZ6735-13-01 03:36:001.7[facility] UrggwxwXBDUHWEOTM0182-00-11 03:36:000.4[facility] KifthydNAZYWNKLCH5687-11-74 03:36:000.1[facility] [place] OLNAOMMOOR0627-66-21 03:36:000.1[facility]- XR CHEST 1 [id number] 15:42:00 FAX: Dale Okeefe MD [phone] [place]: [address] St: REG Name: Wayne MACYJOSELINHAFSA KEVIN [facility] : [birth year] Age/S: 54/M [address] Unit #: [id number] Loc: [place] [address] Phys: Dale Okeefe MD Acct: [id number] Dis Date: Status: REG ER PHONE #: [phone] Exam Date: 06/02/2019 1535 FAX #: [phone] Reason: CHEST PAIN EXAMS: CPT CODE: [id number] XR CHEST 1 V 90210 HISTORY: CHEST PAIN TECHNIQUE: AP chest x-ray COMPARISON: 09/08/14 FINDING S: No airspace consolidation or pleural effusion. Normal heart siz e. Mediastinal silhouette is unremarkable. Visualized osseous structures are grossly intact. IMPRESSION: No radiog raphic evidence of acute cardiopulmonary process. LOCATION: LP at 1542 Reported and signed by: Loren dao D.O. CC: Dale Okeefe MD Technologist: ABBIE PARKER(Kaushal) Katey scrd Date/Time/By: 06/02/2019 (1542) : By: [email or web address] Orig Print D/T: S : 06/02/2019 (8204) PAGE 1 Signed Report BASIC METABOLIC [id number] 21:53:00* Test Item Value Reference Range Interpretation Comments SODIUM (test code = NA) 136 mmol/L 136-145 N POTASSIUM (test code = K) 3.9 mmol/L 3.5-5.1 N CHLORIDE (test code = CL) 100.0 mmol/L 98-107 N CARBON DIOXIDE (test code = CO2) 30.0 mmol/L 21-32 N ANION GAP (test code = GAP) 9.9 10-20 L GLUCOSE (test code = GLU) 86 mg/dL 74-106 N BLOOD UREA NITROGEN (test code = BUN) 8 mg/dL 7-18 N GLOMERULAR FILTRATION RATE (test code = GFR) > 60 mL/min >=60 Estimated GFR by using Modified MDRD formula.Chronic kidney disease is defined as either kidney damageor GFR <60 mL/min/1.73 m2 for >3 months. CREATININE (test code = CREAT) 1.00 mg/dL 0.7-1.3 N BUN/CREATININE RATIO (test code = BUN/CREA) 8.0 10-20 L CALCIUM (test code = CA) 8.8 mg/dL 8.5-10.1 N HEPATIC FUNCTION [id number] 21:53:00* Test Item Value Reference Range Interpretation Comments TOTAL PROTEIN (test code = PROT) 7.7 gram/dL 6.4-8.2 N ALBUMIN (test code = ALB) 3.6 g/dL 3.4-5.0 N GLOBULIN (test code = GLOB) 4.1 gram/dL 2.7-4.2 N ALBUMIN/GLOBULIN RATIO (test code = A/G) 0.9 0.75-1.50 N BILIRUBIN TOTAL (test code = BILT) 0.50 mg/dL 0.0-1.0 N BILIRUBIN DIRECT (test code = BILD) 0.16 mg/dL 0.0-0.20 N SGOT/AST (test code = AST) 86 IUnit/L 15-37 H SGPT/ALT (test code = ALT) 84 IUnit/L 12-78 H ALKALINE PHOSPHATASE TOTAL (test code = ALKP) 111 IUnit/L 45-117 N Note change in reference range due to change in reagent. [id number] 21:53:00* Test Item Value Reference Range Interpretation Comments LIPASE (test code = LIP) 319 U/L 73.0-393.0 N [id number] 21:53:00* Test Item Value Reference Range Interpretation Comments TROPONIN-I (test code = TROPI) <0.015 ng/mL 0-0.045 N BASIC METABOLIC [id number] 21:30:00* Test Item Value Reference Range Interpretation Comments SODIUM (test code = NA) 136 mmol/L 136-145 N POTASSIUM (test code = K) 3.9 mmol/L 3.5-5.1 N CHLORIDE (test code = CL) 100.0 mmol/L 98-107 N CARBON DIOXIDE (test code = CO2) mmol/L 21-32 ANION GAP (test code = GAP) 10-20 GLUCOSE (test code = GLU) mg/dL 74-106 BLOOD UREA NITROGEN (test code = BUN) mg/dL 7-18 GLOMERULAR FILTRATION RATE (test code = GFR) mL/min >=60 CREATININE (test code = CREAT) mg/dL 0.7-1.3 BUN/CREATININE RATIO (test code = BUN/CREA) 10-20 CALCIUM (test code = CA) mg/dL 8.5-10.1 HEPATIC FUNCTION [id number] 21:30:00* Test Item Value Reference Range Interpretation Comments TOTAL PROTEIN (test code = PROT) gram/dL 6.4-8.2 ALBUMIN (test code = ALB) g/dL 3.4-5.0 GLOBULIN (test code = GLOB) gram/dL 2.7-4.2 ALBUMIN/GLOBULIN RATIO (test code = A/G) 0.75-1.50 BILIRUBIN TOTAL (test code = BILT) mg/dL 0.0-1.0 BILIRUBIN DIRECT (test code = BILD) mg/dL 0.0-0.20 SGOT/AST (test code = AST) IUnit/L 15-37 SGPT/ALT (test code = ALT) IUnit/L 12-78 ALKALINE PHOSPHATASE TOTAL (test code = ALKP) IUnit/L 45-117 [id number] 21:30:00* Test Item Value Reference Range Interpretation Comments LIPASE (test code = LIP) U/L 73.0-393.0 [id number] 21:30:00* Test Item Value Reference Range Interpretation Comments TROPONIN-I (test code = TROPI) ng/mL 0-0.045 CBC W/O [id number] 21:24:00* Test Item Value Reference Range Interpretation Comments WHITE BLOOD CELL (test code = WBC) 7.4 K/mm3 4.5-12.5 N RED BLOOD CELL (test code = RBC) 4.50 mill/mm3 4.0-5.8 N HEMOGLOBIN (test code = HGB) 14.0 gram/dL 13.0-17.5 N HEMATOCRIT (test code = HCT) 40.8 % 42.0-52.0 L MEAN CELL VOLUME (test code = MCV) 90.7 fL 80-98 N MEAN CELL HGB (test code = MCH) 31.1 picogram 27.0-33.0 N MEAN CELL HGB CONCETRATION (test code = MCHC) 34.3 gram/dL 33.0-36. 0 N RED CELL DISTRIBUTION WIDTH (test code = RDW) 13.2 % 11.6-16. 2 N PLATELET COUNT (test code = PLT) 154 K/mm3 150-450 N MEAN PLATELET VOLUME (test code = MPV) 9.5 fL 6.7-11.0 N CBC W/O [id number] 21:19:00* Test Item Value Reference Range Interpretation Comments WHITE BLOOD CELL (test code = WBC) K/mm3 4.5-12.5 RED BLOOD CELL (test code = RBC) mill/mm3 4.0-5.8 HEMOGLOBIN (test code = HGB) 14.0 gram/dL 13.0-17.5 N HEMATOCRIT (test code = HCT) % 42.0-52.0 MEAN CELL VOLUME (test code = MCV) fL 80-98 MEAN CELL HGB (test code = MCH) picogram 27.0-33.0 MEAN CELL HGB CONCETRATION (test code = MCHC) gram/dL 33.0-36. 0 RED CELL DISTRIBUTION WIDTH (test code = RDW) % 11.6-16. 2 PLATELET COUNT (test code = PLT) K/mm3 150-450 MEAN PLATELET VOLUME (test code = MPV) fL 6.7-11.0 CHEM [id number] 01:46:00* Test Item Value Reference Range Interpretation Comments A/G Ratio (test code = A/G Ratio) 0.9 1 0.7-1.6 [facility] [id number] 01:46:00* Test Item Value Reference Range Interpretation Comments B/C Ratio (test code = B/C Ratio) 13 1 6-25 [facility] [id number] 01:46:0013.2[facility] PANEL 2017-09-12 01:46:004.1[facility] GZEMO9207-05-47 01:46:0072[facility] REPQY6686-60-82 01:46:0083[facility] PKKTJ3592-38-27 01:46:0023[facility] AYGKT5844-43-11 01:46:76864Ymolwcxj [facility]CHE[facility] ZOSWX7427-63-78 01:46:000.3[facility] FEARC4414-78-00 01:46:003.8 [facility] NTHSY7855-57-49 01:46:0033[facility] PANEL 2017-09-12 01:46:0025[facility] HNQQY1013-65-85 01:46:007.9[facility] MQYUU3280-45-51 01:46:008.7[facility] YPRAB2654-81-86 01:46:45357Etugakxh [facility]annCHE[facility] JFOPR3678-48-33 01:46:004.2[facility] MPUWK2627-82-37 01:46:79856Nomhssty [facility]CHE[facility] SADNG5969-92-75 01:46:0015 [facility] OAYYJ9249-67-99 01:46:001.16[facility]HEMATOLOGY 2017-09-12 01:46:00* Test Item Value Reference Range Interpretation Comments INR (test code = INR) 0.94 1 0.85-1.17 [facility] HzehseeSPSNAILKVK4843-77-82 01:46:00* Test Item Value Reference Range Interpretation Comments PTT (test code = PTT) 26.6 s 22.9-35.8 [facility] AyjdaihJJUSJGPUJP7108-94-90 01:46:00* Test Item Value Reference Range Interpretation Comments PT (test code = PT) 12.6 s 12.0-14.7 [facility] FbligctZVIVXTYIWI4744-63-89 01:46:008.4[facility]MAT[facility]Y 2017-09-12 01:46:48121Ynreshiz UywuufdJDNSYDAUXP8631-19-06 01:46:0042.4[facility] PzlmvxrAWYCVISIRA3890-72-67 01:46:004.95[facility] DterpvyLUVCLVPWHD1210-34-24 01:46:0085.6[facility] AzhugyoORYELKNJEX2519-68-71 01:46:0014.1[facility] HPKBFBCEMQ8349-40-15 01:46:0033.3[facility] PprtdfoQVFOQUXGOX0333-43-99 01:46:00* Test Item Value Reference Range Interpretation Comments MCH (test code = MCH) 28.5 pg 27.0-31.0 [facility] AqvsgffKQZTSSWXIZ6625-76-58 01:46:0015.6[facility]Y 2017-09-12 01:46:008.3[facility] EvfzjxkCIKYCODZBW7262-63-86 01:46:000.2[facility] UmbbfwnHECRIEQJPI0411-77-69 01:46:000.3[facility] OmlnzcmFBCALBCHBM6783-84-29 01:46:000.7[facility] YicjyhsETOIZVKSJY2972-94-45 01:46:002.3[facility] UJIATROGGI7126-04-49 01:46:003.4[facility] ImoxerzUYZFSQJITG6079-09-54 01:46:005.2 [facility] HbwcaqwVAXSNUSFBU6390-31-86 01:46:001.8[facility]MAT[facility]Y 2017-09-12 01:46:0063.2[facility] UkmcaepEXGTTKSMNN3496-01-63 01:46:0022.3[facility] YzubtwoORZKFWEGEU0003-65-65 01:46:008.8[facility] KMPSH5833-44-78 01:37:0057[facility] KSMZZ5478-43-96 01:37:001.4[facility] CARDIAC TKCTRIC8325-21-51 12:27:001.0[facility] CKMIVFT3503-70-23 12:27:001.0[facility] HOGQYEB5097-20-23 12:27:15969Ncmoimel Flynn CARDIAC RQDMLBC5309-69-12 12:27:00<0.02[facility] ZLRMFMQ0409-79-56 08:01:001.0[facility] CXSMTMA4160-78-01 08:01:000.9[facility] CARDIAC NVVFKFX1444-80-10 08:01:00<0.02[facility] NQVTOFW2907-77-08 08:01:07275Cduknyxm [facility]annCHE[facility] LKWXU1588-44-55 08:01:0047.0[facility] CARDIAC SSEROPF3132-07-11 02:30:0026[facility] LTTRWSE5441-27-16 02:30:00<0.02[facility] UWIMLJR7353-17-86 02:30:001.3[facility] FGKZSRH1495-17-32 02:30:66518Awbdjwcr [facility]annCARDIAC ENZYMES 2017-03-27 02:30:000.8[facility] NWUQU9287-77-89 02:30:0094[facility] CSYVO1798-24-88 02:30:003.8[facility] OFXSA0908-78-10 02:30:31340Etslfjve [facility]annCHE[facility] OYBWW7532-85-84 02:30:18980Fmaswkka HermannCHEM CEUTF6665-77-60 02:30:008[facility] OELJP3916-57-85 02:30:000.93 [facility] HWWZZ3410-10-07 02:30:0098[facility] PANEL 2017-03-27 02:30:0027[facility] EFVMM0129-10-62 02:30:003.4[facility] UKFZS7380-40-68 02:30:000.8[facility] THYOA0885-86-66 02:30:004.1[facility] RZLFB7239-04-83 02:30:009.8[facility] WSTTF7319-05-13 02:30:009[facility] EBQPA8013-26-73 02:30:000.4 [facility] GTPSL7771-96-99 02:30:0029[facility] PANEL 2017-03-27 02:30:0093[facility] DSSMI9904-14-80 02:30:007.5[facility] WNTOW6127-05-81 02:30:008.0[facility] IEKUV8420-00-44 02:30:0027[facility] IkcsgbdSIASYHWIIE4807-61-95 02:30:0085.1[facility] WOTOZWXNAO7502-97-07 02:30:0013.4[facility] OtlzpneDOBNVJCRTN8492-31-12 02:30:00 39.4[facility] SjqtjhkKBTJJHXYUZ6271-62-19 02:30:005.6[facility]annHEMATOLOGY 2017-03-27 02:30:004.62[facility] TpckxiyDHVERUYHYX7289-61-98 02:30:44122Lakgroen MixzvktCMRZCZTWPX7400-50-71 02:30:007.7[facility] ActzgziGMDUBORSXB2161-83-03 02:30:00* Test Item Value Reference Range Interpretation Comments MCH (test code = MCH) 29.0 pg 27.0-31.0 [facility] WbgwmiiOOELCWFQDC6486-19-72 02:30:0034.0[facility]HEMATOLOGY 2017-03-27 02:30:0016.7[facility] FkbkrueOTQDHWGCIG2701-08-03 02:30:000.1[facility] LokspcdJHVTADOEWM8156-90-32 02:30:000.5[facility] CysoeziQYQGWPWTSI0680-74-96 02:30:000.1[facility] QupupgzLPMEHSRLOC5622-17-71 02:30:002.6[facility] WCCKTLAUKC5051-17-79 02:30:001.7[facility] PecbfjgWSIRMMCHXE1418-27-05 02:30:003.1 [facility] YgvpzsmLYDJNEXWPJ5458-47-24 02:30:001.7[facility]annHEMATOLOGY 2017-03-27 02:30:0055.9[facility] BfnfezeDPFHQMICVE4090-09-72 02:30:0031.3[facility] DmjzbfhTRAKCJZCWT2316-94-31 02:30:008.5[facility]
[2020-05-20 17:12] LABS: BASOPHILS # (AUTO) 0.1 (0.0-0.1); BASOPHILS % 1.6 % (0.0-1.0); EOSINOPHILS % 0.6 % (0.0-6.0); HEMATOCRIT 41.1 % (38.2-49.6); HEMOGLOBIN 14.4 g/dL (14.0-18.0); LYMPHOCYTES # (AUTO) 1.3 (1.0-3.2); LYMPHOCYTES % 25.2 % (18.0-39.1); MEAN CORPUSCULAR HEMOGLOBIN 32.6 pg (28-32); MONOCYTES # (AUTO) 0.6 (0.2-0.8); MONOCYTES % 11.9 % (4.4-11.3); NEUTROPHILS # (AUTO) 3.1 (2.1-6.9); NEUTROPHILS % 60.5 % (38.7-80.0); PLATELET COUNT 143 x10e3/uL (140-360); RED BLOOD COUNT 4.42 x10e6/uL (4.3-5.7); RED CELL DISTRIBUTION WIDTH 13.3 % (11.7-14.4)
[2020-05-20 17:30] LABS: ALANINE AMINOTRANSFERASE 80 IU/L (0-55); ALBUMIN 3.9 g/dL (3.5-5.0); ALKALINE PHOSPHATASE 105 IU/L (40-150); ANION GAP 14.5 mmol/L (8-16); BLOOD UREA NITROGEN 6 mg/dL (7-26); BUN/CREATININE RATIO 7 (6-25); CALCIUM 8.9 mg/dL (8.4-10.2); CARBON DIOXIDE 26 mmol/L (22-29); CHLORIDE 100 mmol/L (98-107); CREATININE, SERUM 0.81 mg/dL (0.72-1.25); EST GLOMERULAR FILTRATION RATE > 60 ML/MIN (60-); GLUCOSE 112 mg/dL (74-118); POTASSIUM 3.5 mmol/L (3.5-5.1); SODIUM 137 mmol/L (136-145)
--- NOTE | 2020-05-20 17:36 | Emergency Department Note ---
History of Present Illnes History of Present Illness Chief Complaint: General Medicine Complaints History of Present Illness This is a 55 year old male Chief Complaint Comment PATIENT IN FROM HOME WITH COMPLAINTS OF FEELING LIGHT HEADED X 4 DAYS; ALSO WITH COMPLAINTS OF BLURRED VISION AND FEELING A "PULSATION" ON THE TOP OF HIS HEAD. PATIENT ALERT AND ORIENTED, RESP EVEN AND NONLABORED, DENIES PAIN OR SHORTNESS OF BREATH. STATES HISTORY OF HTN BUT HAS NOT BEEN TAKING BLOOD PRESSURE MEDICATION. Historian: Patient Arrival Mode: Car Excellence Specialist Required: No Onset (how long ago): day(s) (4) Location: Generalizd Quality: lightheadedness Radiation: Reports non-radiation Severity: mild Onset quality: unable to specify Duration (how long): day(s) (4) Timing of current episode: sporadic Progression: unchanged Chronicity: new Context: Denies recent illness, Denies recent surgery Relieving factors: none Exacerbating factors: none Associated symptoms: Reports denies other symptoms Treatments prior to arrival: none Past Medical/Family History Physician Review I have reviewed the patient's past medical and family history. Any updates have been documented here. Past Medical History Recent Fever: No Clinical Suspicion of Infectio: No New/Unexplained Change in Ment: No Past Medical History: Hypertension Other Surgery: KNEE SURGERY Social History Physically hurt or threatened: No Review of Systems Review of Systems Constitutional: Reports no symptoms EENTM: Reports no symptoms Cardiovascular: Reports no symptoms Respiratory: Reports no symptoms Gastrointestinal: Reports no symptoms Genitourinary: Reports no symptoms Musculoskeletal: Reports no symptoms Integumentary: Reports no symptoms Neurological: Reports as per HPI, Reports other (Light headedness) Psychological: Reports no symptoms Endocrine: Reports no symptoms Hematological/Lymphatic: Reports no symptoms Physical Exam Related Data Allergies: Coded Allergies: No Known Allergies (Unverified , 05/20/20) Triage Vital Signs Vital Signs Date Time Temp Pulse Resp B/P (MAP) Pulse Ox O2 Delivery O2 Flow Rate FiO2 05/20/20 16:44 97.9 89 20 179/113 100 Room Air Vital signs reviewed: Yes Physical Exam CONSTITUTIONAL Constitutional: Present well-developed, Present well-nourished HENT HENT: Present normocephalic, Present atraumatic, Present oropharynx clear/moist, Present nose normal HENT L/R: Present left ext ear normal, Present right ext ear normal EYES Eyes: Reports PERRL, Reports conjunctivae normal NECK Neck: Present ROM normal PULMONARY Pulmonary: Present effort normal, Present breath sounds normal CARDIOVASCULAR Cardiovascular: Present regular rhythm, Present heart sounds normal, Present capillary refill normal, Present normal rate GASTROINTESTINAL Abdominal: Present soft, Present nontender, Present bowel sounds normal GENITOURINARY Genitourinary: Present exam deferred SKIN Skin: Present warm, Present dry MUSCULOSKELETAL Musculoskeletal: Present ROM normal NEUROLOGICAL Neurological: Present alert, Present oriented x 3, Present no gross motor or sensory deficits PSYCHOLOGICAL Psychological: Present mood/affect normal, Present judgement normal Results Laboratory Result Diagram: 05/20/20 1702 05/20/202 Laboratory Laboratory Tests Test 05/20/20 17:02 White Blood Count 5.11 x10e3/uL (4.8-10.8) Red Blood Count 4.42 x10e6/uL (4.3-5.7) Hemoglobin 14.4 g/dL (14.0-18.0) Hematocrit 41.1 % (38.2-49.6) Mean Corpuscular Volume 93.0 fL (81-99) Mean Corpuscular Hemoglobin 32.6 pg (28-32) Mean Corpuscular Hemoglobin Concent 35.0 g/dL (31-35) Red Cell Distribution Width 13.3 % (11.7-14.4) Platelet Count 143 x10e3/uL (140-360) Neutrophils (%) (Auto) 60.5 % (38.7-80.0) Lymphocytes (%) (Auto) 25.2 % (18.0-39.1) Monocytes (%) (Auto) 11.9 % (4.4-11.3) Eosinophils (%) (Auto) 0.6 % (0.0-6.0) Basophils (%) (Auto) 1.6 % (0.0-1.0) Neutrophils # (Auto) 3.1 (2.1-6.9) Lymphocytes # (Auto) 1.3 (1.0-3.2) Monocytes # (Auto) 0.6 (0.2-0.8) Eosinophils # (Auto) 0.0 (0.0-0.4) Basophils # (Auto) 0.1 (0.0-0.1) Absolute Immature Granulocyte (auto 0.01 x10e3/uL (0-0.1) Sodium Level 137 mmol/L (136-145) Potassium Level 3.5 mmol/L (3.5-5.1) Chloride Level 100 mmol/L (98-107) Carbon Dioxide Level 26 mmol/L (22-29) Anion Gap 14.5 mmol/L (8-16) Blood Urea Nitrogen 6 mg/dL (7-26) Creatinine 0.81 mg/dL (0.72-1.25) Estimat Glomerular Filtration Rate > 60 ML/MIN (60-) BUN/Creatinine Ratio 7 (6-25) Glucose Level 112 mg/dL (74-118) Calcium Level 8.9 mg/dL (8.4-10.2) Total Bilirubin 0.6 mg/dL (0.2-1.2) Aspartate Amino Transf (AST/SGOT) 150 IU/L (5-34) Alanine Aminotransferase (ALT/SGPT) 80 IU/L (0-55) Alkaline Phosphatase 105 IU/L (40-150) Total Protein 7.7 g/dL (6.5-8.1) Albumin 3.9 g/dL (3.5-5.0) Globulin 3.8 g/dL (2.3-3.5) Albumin/Globulin Ratio 1.0 (0.8-2.0) Lab results reviewed: Yes Assessment & Plan Medical Decision Making MDM 55 y.o F presents for occasional head pulsing and light headedness. Exam is benign, he does not see a doctor and has no known medical problems. VS shows HTN. W/u benign. Doubt emergent process. Will start on amlodipine 5mg for HTN and instructed to f/ w/ PCP. Appropriate for DC. Assessment & Plan Final Impression: (1) Hypertension Depart Disposition: HOME, SELF-CARE Last Vital Signs Date Time Temp Pulse Resp B/P (MAP) Pulse Ox O2 Delivery O2 Flow Rate FiO2 05/20/20 17:22 103 20 162/96 99 Room Air 05/20/20 17:01 98.4 Home Meds Active Scripts Amlodipine Besylate (AMLODIPINE BESYLATE) 5 Mg Tablet, 5 MG PO DAILY for Hypertension for 30 Days, #30 TAB Prov:GLENDY DISLA MD 05/20/20 Reported Medications Indomethacin (INDOMETHACIN) 50 Mg Capsule, 50 MG PO 03/23/13 Medications in the ED Amlodipine Besylate 5 mg ONCE ONCE PO Last administered on 05/20/20at 17:22; Admin Dose 5 MG; Start 05/20/20 at 17:00; Stop 05/20/20 at 17:01; Status DC GLENDY DISLA MD May 20, 2020 17:36
[2020-05-20] MEDS ORDERED: AMLODIPINE BESYL5 MG PO (17:38)
== END 2020-05-20 17:53 | disposition home or self-care (01) ==
LOC: ER 17:07
DX: I10 Essential (primary) hypertension (principal); R42 Dizziness and giddiness
CPT/HCPCS: 36415; 80053; 84443; 85025; 93005; 99284